=== PATIENT | female | born 1965 | race Caucasian/White ===

== ENCOUNTER 2017-10-01 08:21 | Day surgery (SDC) | payer OTHER ==
[2017-10-01] MEDS ORDERED: LIDOCAINE 2% MDV (20MG/ML) 20ML VIAL IV ONE (08:22)
[2017-10-01] MEDS ORDERED: ONDANSETRON HCL IV 4 MG/2 ML VIAL IVP ONE (08:22)
[2017-10-01] MEDS ORDERED: PROPOFOL 10 MG/ML VIAL IV ONE (08:22)
[2017-10-01] MEDS ORDERED: FENTANYL PF 100MCG/2ML VIAL IV ONE (08:22)
[2017-10-01] MEDS ORDERED: METOCLOPRAMIDE HCL 10 MG/2 ML VIAL IVP ONE (08:22)
--- NOTE | 2017-10-04 09:10 | Operative Note ---
DATE OF SURGERY: 10/01/2017 SURGEON: Jacqui Pham MD OPERATION: 1. ESOPHAGOGASTRODUODENOSCOPY. 2. COLONOSCOPY. INDICATIONS: This is a 51-year-old female with history of epigastric pain and rectal bleeding who presented for both esophagogastroduodenoscopy and colonoscopy. POSTOPERATIVE DIAGNOSES: 1. Normal esophagus. 2. Mild gastritis. 3. Mild duodenitis. 4. An 8 mm sessile polyp in the sigmoid colon that was removed by snare cautery. 5. A 6 mm sessile polyp in the rectum that was also removed by snare cautery. ANESTHESIA: Sedation is per Anesthesia. Pulse oximetry was monitored throughout the procedure to maintain O2 saturation of 90% or greater. Supplemental oxygen was administered via nasal cannula. Cardiac and vital signs were monitored throughout the duration of the procedure, and they were stable. The procedures of esophagogastroduodenoscopy and colonoscopy and risks and benefits of the procedures, including the risk of bleeding and perforation, among others, were explained to the patient who voiced understanding and agreed to have the procedures done. Physical examination was performed, and the patient was found stable for sedation. PROCEDURE: The patient was placed in the left lateral position. Sedation was initiated. A plastic bite block was inserted into the oral cavity. The Olympus [id number] gastroscope was introduced into the oral cavity and advanced to the proximal esophagus without difficulty. The esophageal mucosa was carefully examined upon introduction of the gastroscope. The proximal and mid and distal esophageal mucosa appeared normal. The gastroscope was then advanced into the stomach, and surveillance of the stomach revealed diffuse erythema along the gastric body and antrum but no ulcers were noted. The gastroscope was then advanced to the descending duodenum without difficulty. The duodenal bulb and descending duodenum appeared normal. The gastroscope was then withdrawn into the stomach and retroflexion was performed. There were no other lesions noted. The gastroscope was then straightened and withdrawn while carefully examining the gastric and esophageal mucosa. No other lesions noted. Multiple duodenal and gastric biopsies were obtained. The patient remained with stable vital signs and was repositioned for colonoscopy. A digital rectal exam was performed and showed some mild external hemorrhoids with no palpable rectal masses. An Olympus PCF-180AL colonoscope was then inserted into the rectum under direct visualization. It was advanced to the cecum without difficulty. The ileocecal valve and appendiceal orifice were identified and photographed. The colonic mucosa was carefully examined upon introduction of the colonoscope. In the sigmoid colon was an 8 mm sessile polyp that was noted and was removed by snare cautery. There were no other lesions noted. The colonoscope was then withdrawn while carefully examining the colonic mucosal surfaces. No other lesions were noted. In the rectum, upon retroflexion, a 6 mm sessile polyp was noted and was removed by snare cautery and grade 3 internal hemorrhoids were noted. The colonoscope was then withdrawn and the procedures were terminated. The patient tolerated the procedures well without any immediate complications. She remained with stable vital signs and was transferred to the recovery room. RECOMMENDATIONS: 1. The patient should be on a low-residue diet for 2 weeks and thereafter to be on a high-fiber diet. 2. She is to avoid aspirin or aspirin-like medications for 3 weeks. 3. She is to use a proton pump inhibitor as needed. Thank you for allowing me to participate in the care of your patient. CC: Dr. Tray BARROW
== END 2017-10-01 10:14 | disposition home or self-care (01) ==
LOC: HOP 08:21
PROVIDERS: ATTEND Internal Medicine Gastroenterology
DX: R10.13 Epigastric pain (principal); K62.5 Hemorrhage of anus and rectum; D12.5 Benign neoplasm of sigmoid colon; D12.8 Benign neoplasm of rectum; K64.2 Third degree hemorrhoids; E11.9 Type 2 diabetes mellitus without complications; Z79.4 Long term (current) use of insulin; E78.00 Pure hypercholesterolemia, unspecified
CPT/HCPCS: 45385; 43235; 00813; J2405; J3010; J2765